=== PATIENT | male | born 1955 | race African-American/Black ===

== ENCOUNTER 2016-12-14 11:18 | Inpatient (IN) | payer OTHER ==
[2016-12-13 15:26] VITALS: BMI 25.7
[2016-12-14] VITALS (20 sets, daily range): BP systolic 110–148; BP diastolic 56–90; PULSE 64–80; RESP 8–20; Ht 188 cm; Wt 95.3 kg
[~2016-12-14] VITALS: Ht 188 cm; Wt 95.3 kg
[2016-12-14] MEDS: SOD CHLORIDE 0.9% 1,000 ML IV SCH ×2 (07:00→20:20)
[~2016-12-14 11:18] MED LIST: ACETAMINOPHEN 1000 MG/100 ML IVPB ONE; AMPICILLIN/SULB 3 GM/NS (PMX) 100 ML IVPB ONE; BUPIVACAINE 0.25% (MPF) 30 ML INJ ONE; metroNIDAZOLE 500 MG/NS (PMX) 100 ML IVPB ONE
[2016-12-14] MEDS ORDERED: ROCURONIUM 50 MG INJ ONE ×2 (12:53→15:04)
[2016-12-14] MEDS ORDERED: CEFAZOLIN 1 GM INJ ONE (12:53)
[2016-12-14] MEDS ORDERED: FENTAnyl 50 MCG/ML VIAL ONE (12:53)
[2016-12-14] MEDS ORDERED: MIDAZOLAM 1 MG/ML 2 ML INJ ONE (12:53)
[2016-12-14] MEDS ORDERED: LIDOCAINE 2% (SDV) 5 ML INJ ONE (12:53)
[2016-12-14] MEDS ORDERED: SUCCINYLCHOLINE CHLORIDE 100 MG/5 ML SYG IV ONE (12:53)
[2016-12-14] MEDS ORDERED: PROPOFOL 20 ML ONE (12:53)
[2016-12-14] MEDS ORDERED: BUPIVACAINE 0.25% (MPF) 30 ML INJ ONE (13:26)
[2016-12-14] MEDS ORDERED: ONDANSETRON 4 MG INJ ONE (14:13)
[2016-12-14] MEDS ORDERED: DEXAMETHASONE 4 MG/ML 1 ML INJ ONE (14:13)
[2016-12-14] MEDS ORDERED: HYDROmorphONE 2 MG/ML SYG ONE ×2 (14:22→15:32)
[2016-12-14] MEDS ORDERED: MEPERIDINE 25 MG INJ IV PRN (14:30)
[2016-12-14] MEDS ORDERED: ALBUTEROL 0.5% (NEB) 2.5 MG/0.5 ML AMP INH ONE (14:30)
[2016-12-14] MEDS ORDERED: PROCHLORPERAZINE 10 MG INJ IV PRN (14:30)
[2016-12-14] MEDS ORDERED: HYDROmorphONE (0.2 MG/ML) 10ML SYG IV PRN ×2 (14:30)
[2016-12-14] MEDS ORDERED: FENTAnyl 50 MCG/ML VIAL IV PRN (14:30)
[2016-12-14] MEDS ORDERED: IPRATROPIUM (NEB) 0.5 MG/2.5 ML AMP HHN ONE (14:30)
[2016-12-14] MEDS ORDERED: ONDANSETRON 4 MG INJ IV PRN (14:30)
[2016-12-14] MEDS ORDERED: DIPHENHYDRAMINE 50 MG INJ IV PRN (14:30)
[2016-12-14] MEDS ORDERED: AMPICILLIN/SULB 3 GM/NS (PMX) 100 ML IVPB STA (15:25)
[2016-12-14] MEDS ORDERED: NEOSTIGMINE 3 MG/3 ML SYRINGE ONE (15:37)
[2016-12-14] MEDS ORDERED: GLYCOPYRROLATE 0.4 MG INJ ONE (15:37)
[2016-12-14] MEDS: metroNIDAZOLE 500 MG/NS (PMX) 100 ML IVPB SCH ×2 (16:00→23:50)
[2016-12-14 16:48] LABS: BASOPHILS % 0.1 % (0.0-2.0); EOSINOPHILS # 0.1 10^3/ul (0.0-0.5); EOSINOPHILS % 0.5 % (0.0-7.0); HEMATOCRIT 45.4 % (42.0-52.0); HEMOGLOBIN 15.1 g/dl (14.0-18.0); LYMPHOCYTES # 1.4 10^3/ul (0.8-2.9); MEAN CORPUSCULAR HEMOGLOBIN 30.5 pg (29.0-33.0); MEAN CORPUSCULAR HGB CONC 33.3 g/dl (32.0-37.0); MEAN CORPUSCULAR VOLUME 91.6 fl (82.0-101.0); MEAN PLATELET VOLUME 7.4 fl (7.4-10.4); MONOCYTE # 0.1 10^3/ul (0.3-0.9); MONOCYTES % 0.8 % (0.0-11.0); NEUTROPHIL # 12.8 10^3/ul (1.6-7.5); NEUTROPHILS % 88.6 % (39.0-77.0); PLATELET COUNT 301 10^3/UL (140-440); RED BLOOD COUNT 4.96 10^6/ul (4.70-6.10); RED CELL DISTRIBUTION WIDTH 12.8 % (11.5-14.5); UNCORRECTED WBC 14.4 10^3/ul (4.8-10.8); WHITE BLOOD COUNT 14.4 10^3/ul (4.8-10.8)
--- NOTE | 2016-12-14 16:50 | OPR ---
DATE OF OPERATION: 12/14/2016 PREOPERATIVE DIAGNOSIS: Unresectable cecal polyp. POSTOPERATIVE DIAGNOSIS: Unresectable cecal polyp. OPERATION PERFORMED: Laparoscopic right hemicolectomy. INDICATIONS FOR PROCEDURE: This is a 61-year-old male with an unresectable cecal polyp. He request s surgical excision. Risks, alternatives, benefits and personnel were discussed with the patient. Patient expressed understanding and consents to the operation. SURGEON: Jameson Rodriges MD SPECIMEN: Right colon. COMPLICATIONS: None. ANESTHESIA: General. DESCRIPTION OF PROCEDURE: The patient was taken to the OR and prepped and draped in usual sterile fashion. Surgical timeout was performed. IV antibiotics were given. Midline incision is made arou nd the periumbilical region with insertion of the hand assist [place], suprapubic 12 mm optical troc ar left flank. The 12 mm optical trocars are placed under direct visualization. Upon initial inspe ction, the cecum was identified and the ileocolic artery was then identified after dissection with l aparoscopic Harmonic vijaya. This ileocolic artery was divided using a 45 mm vascular load [place] stapler. There was good hemostasis. The white line of [place]t was then divided along the right side of the colon ____proximally. There was good mobilization and medialization of the right colon to th e midline. At this point, the operation was converted to open portion of the operation. The cecum and right colon was identified and medialized. The right colon was divided with 2 fires of the 45 m m blue load [place]. Several loads of a white load 45 [place] was used to divide the mesentery. Di vision of approximately 4 inches from the ileocecal valve proximally was performed using a 45 mm dianne e load [place] stapler. The [id number] functional end-to-end anastomosis was performed by placing 2 enterotomies in the proximal and distal ends and approximation with 2 fires of blue load 45 [place] on stapler. There was good hemostasis. The enterotomy was then closed in a 2-layer fashion with a running 3-0 PDS and interrupted 3-0 silks. There was good hemostasis. The mesentery was then close d with a running 3-0 Vicryl. The midline incision was then closed with running #1 looped PDS from s uperior to inferior and inferior to superior and tied in the midline. The wound was irrigated with Betadine. Skin was closed with skin winston. Local anesthesia was injected into port sites and mid line incision. Dry dressings were applied. Dictated By: JAMESON YOU/DAVID Conf#: [id number] DID#: [id number]
[2016-12-14 16:52] LABS: CONDITION 1
[2016-12-14 16:52] LABS: ADD UMIC NO; URINE BILIRUBIN (Dip) NEGATIVE (NEGATIVE); URINE BLOOD (Dip) NEGATIVE (NEGATIVE); URINE COLOR LT. YELLOW (YELLOW); URINE GLUCOSE (Dip) NEGATIVE (NEGATIVE); URINE KETONES (Dip) NEGATIVE (NEGATIVE); URINE LEUKOCYTE ESTERASE (Dip) NEGATIVE (NEGATIVE); URINE NITRITE (Dip) NEGATIVE (NEGATIVE); URINE TOTAL PROTEIN (Dip) NEGATIVE (NEGATIVE); URINE UROBILINOGEN (Dip) 0.2 E.U./dL (0.1-1.0)
[2016-12-14 17:11] LABS: ALBUMIN 3.8 g/dl (3.3-4.9)
[2016-12-14 17:12] LABS: POTASSIUM 4.5 mmol/L (3.5-5.1)
[2016-12-14 17:14] LABS: ALBUMIN/GLOBULIN RATIO 1.08; BILIRUBIN,INDIRECT 0.5 mg/dl (0-1.1); BILIRUBIN,TOTAL 0.5 mg/dl (0.2-1.3); CREATININE 1.14 mg/dl (0.61-1.24); TOTAL PROTEIN 7.3 g/dl (6.1-8.1)
[2016-12-14 17:15] LABS: CALCIUM 9.1 mg/dl (8.4-10.2)
[2016-12-14] MEDS: HYDROmorphONE 1 MG/ML SYG IV PRN ×2 (17:46→23:50)
[2016-12-14] MEDS: LACTATED RINGER'S 1,000 ML IV SCH (17:47)
[2016-12-14] MEDS: AMPICILLIN/SULB 3 GM/NS (PMX) 100 ML IVPB SCH (21:25)
[2016-12-14] MEDS ORDERED: ALBUTEROL HFA 8 GM INHALER INH PRN (21:30)
[2016-12-15 00:03] VITALS: BP 142/80; RESP 20
[2016-12-15] MEDS: LACTATED RINGER'S 1,000 ML IV SCH ×3 (01:59→21:48)
[2016-12-15] MEDS: AMPICILLIN/SULB 3 GM/NS (PMX) 100 ML IVPB SCH ×3 (03:16→15:56)
[2016-12-15] MEDS: HEPARIN 5,000 UNIT/0.5 ML SYG SC SCH ×3 (05:16→21:53)
[2016-12-15 05:41] LABS: BASOPHIL # 0.1 10^3/ul (0.0-0.1); BASOPHILS % 0.5 % (0.0-2.0); HEMATOCRIT 43.9 % (42.0-52.0); HEMOGLOBIN 14.8 g/dl (14.0-18.0); LYMPHOCYTES # 1.2 10^3/ul (0.8-2.9); LYMPHOCYTES % 6.1 % (15.0-51.0); MEAN CORPUSCULAR HEMOGLOBIN 30.8 pg (29.0-33.0); MEAN CORPUSCULAR HGB CONC 33.7 g/dl (32.0-37.0); MEAN CORPUSCULAR VOLUME 91.3 fl (82.0-101.0); MEAN PLATELET VOLUME 7.8 fl (7.4-10.4); MONOCYTE # 0.6 10^3/ul (0.3-0.9); MONOCYTES % 3.2 % (0.0-11.0); NEUTROPHIL # 17.4 10^3/ul (1.6-7.5); NEUTROPHILS % 90.2 % (39.0-77.0); PLATELET COUNT 272 10^3/UL (140-440); RED BLOOD COUNT 4.81 10^6/ul (4.70-6.10); RED CELL DISTRIBUTION WIDTH 12.9 % (11.5-14.5); UNCORRECTED WBC 19.3 10^3/ul (4.8-10.8); WHITE BLOOD COUNT 19.3 10^3/ul (4.8-10.8)
[2016-12-15] MEDS: HYDROmorphONE 1 MG/ML SYG IV PRN ×3 (05:59→15:56)
[2016-12-15 06:10] LABS: ALBUMIN 3.7 g/dl (3.3-4.9); POTASSIUM 4.6 mmol/L (3.5-5.1)
[2016-12-15 06:11] LABS: CONDITION 1; LH ANALYZER COMMENTS 1; SUSPECT 1
[2016-12-15 06:12] LABS: BILIRUBIN,INDIRECT 0.6 mg/dl (0-1.1); BILIRUBIN,TOTAL 0.6 mg/dl (0.2-1.3); CREATININE 1.03 mg/dl (0.61-1.24)
[2016-12-15 06:13] LABS: ALBUMIN/GLOBULIN RATIO 1.08; CALCIUM 9.5 mg/dl (8.4-10.2); TOTAL PROTEIN 7.1 g/dl (6.1-8.1)
[2016-12-15 07:00] VITALS: BP 127/60; RESP 20
[2016-12-15] MEDS: SALMETEROL/FLUTICASONE 500/50 INHA INH SCH ×2 (08:24→20:37)
[2016-12-15] MEDS: metroNIDAZOLE 500 MG/NS (PMX) 100 ML IVPB SCH (08:24)
[2016-12-15] MEDS: SOD CHLORIDE 0.9% 1,000 ML IV SCH ×2 (09:40→23:00)
--- NOTE | 2016-12-15 11:26 | HP ---
Date/Time of Note Date/Time of Note DATE: 12/15/16 TIME: 11:25 Assessment/Plan VTE Prophylaxis VTE Prophylaxis Intervention: other Lines/Catheters IV [facility] Type (from [facility] Peripheral IV Urinary Cath still in place: Yes Reason Cath still needed: skin wounds contaminated by urine Assessment/Plan Chief Complaint/Hosp Course 1) cecal mass - s/p resection Problems: HPI/ROS Admit Date/Time Admit Date/Time Dec 14, 2016 at 11:18 Hx of Present Illness Patient comes in for elective surgery to remove a cecal mass. PMH/Family/Social Past Medical History Medical History: no pertinent history Past Surgical History Past Surgical Hx: no surgical history Social History Smoking Status: Unknown if ever smoked Exam/Review of Systems Vital Signs Vitals Vital Signs Date Time Temp Pulse Resp B/P Pulse Ox O2 Delivery O2 Flow Rate FiO2 12/15/16 07:00 98.7 70 20 127/60 97 12/14/16 21:30 Nasal Cannula 12/14/16 20:15 2.0 Intake and Output 12/14/16 12/14/16 12/15/16 15:00 23:00 07:00 Intake Total 2320 ml 1300 ml Output Total 1070 ml 1100 ml Balance 1250 ml 200 ml Exam Constitutional: well developed Head: atraumatic, normocephalic Respiratory: clear to auscultation Cardiovascular: regular rate and rhythm Extremities: normal pulses Labs Result Diagram: 12/15/16 0420 12/15/16 0420 Medications Medications Current Medications Sodium Chloride 1,000 ml @ 75 mls/hr [id number] IV ; Start 12/14/16 at 07:00 Ampicillin Sodium/ Sulbactam Sodium 100 ml @ 200 mls/hr Q6H IVPB Last administered on 12/15/16t 10:06; Admin Dose 200 MLS/HR; Start 12/14/16 at 22:00 ; Stop 12/15/16 at 21:59 Metronidazole (Flagyl 500 Mg (Pmx)) 100 ml @ 100 mls/hr Q8H IVPB Last administered on 12/15/16 08:24; Admin Dose 100 MLS/HR; Start 12/14/16 at 16:00 ; Stop 12/15/16 at 15:59 Hydromorphone HCl (Dilaudid) 0.5 mg Q6H PRN IV PAIN LEVEL 6-10 Last administered on 12/15/16 10:06; Admin Dose 0.5 MG; Start 12/14/16 at 16:00 Morphine Sulfate 2 mg 2 mg Q2H PRN IV PAIN LEVEL 6-10; Start 12/14/16 at 16:00 Lactated Ringer's (Lr) 1,000 ml @ 100 mls/hr Q10H IV Last administered on 12/14 17:47; Admin Dose 100 MLS/HR; Start 12/14/16 at 15:59 Heparin Sodium (Porcine) (Heparin (5000 Units/0.5 ml)) 5,000 unit Q8 SC Last administered on 12/15/16 05:16; Admin Dose 5,000 UNIT; Start 12/15/16 at 06:00 Salmeterol Xinafoate/ Fluticasone (Advair 500/50 Diskus) 1 inh BID INH Last administered on 12/15/16 08:24; Admin Dose 1 INH; Start 12/15/16 at 09:00 VALORIE LONGORIA Dec 15, 2016 11:26
--- NOTE | 2016-12-15 17:51 | PN ---
DATE: POSTOPERATIVE DAY: #1 SUBJECTIVE: Complains of feeling bloated, but is not passing gas, is not vomiting and no nausea. OBJECTIVE VITAL SIGNS: 98.7, heart rate 70, respirations 20, blood pressure 127/60, saturation 97% on room ai r. GENITOURINARY: Urine output 2,120 today. Del Rio catheter is in place. IV is running. EXTREMITIES: Sequential compression devices around the legs. LABORATORY: WBC 19,700, with 90% segmented. Hemoglobin 14.8, hematocrit 43.9. ASSESSMENT: Stable postoperative day #1. Abdomen is slightly distended. Bowel sounds are hypoacti ve. PLAN: Continue current care. Encourage out of bed walking around the floor. May discontinue Del Rio tomorrow morning. Dictated By: KARINA MARSHALL/DAVID Conf#: [id number] DID#: [id number]
[2016-12-15 19:34] VITALS: BP 112/66; RESP 20
[2016-12-15] MEDS: morphine 2 MG INJ IV PRN (20:37)
[2016-12-16] MEDS: morphine 2 MG INJ IV PRN ×3 (02:41→22:22)
[2016-12-16] MEDS: HEPARIN 5,000 UNIT/0.5 ML SYG SC SCH ×3 (05:53→20:30)
[2016-12-16 07:21] VITALS: BP 128/76; RESP 16
[2016-12-16] MEDS: LACTATED RINGER'S 1,000 ML IV SCH ×2 (07:59→16:54)
[2016-12-16] MEDS: SALMETEROL/FLUTICASONE 500/50 INHA INH SCH ×2 (08:19→20:28)
[2016-12-16] MEDS: SOD CHLORIDE 0.9% 1,000 ML IV SCH ×2 (08:19→22:26)
[2016-12-16] MEDS: HYDROmorphONE 1 MG/ML SYG IV PRN ×2 (11:45→17:58)
--- NOTE | 2016-12-16 12:13 | PN ---
Date/Time of Note Date/Time of Note DATE: 12/16/16 TIME: 12:12 Assessment/Plan VTE Prophylaxis VTE Prophylaxis Intervention: other Lines/Catheters IV [facility] Type (from [facility]): Peripheral IV Urinary Cath still in place: No Assessment/Plan Chief Complaint/Hosp Course 1) cecal mass - s/p resection Problems: Subjective 24 Hr Interval Summary Free Text/Dictation Patient has no complaints Exam/Review of Systems Vital Signs Vitals Vital Signs Date Time Temp Pulse Resp B/P Pulse Ox O2 Delivery O2 Flow Rate FiO2 12/16/16 07:21 98.7 84 16 128/76 98 12/14/16 21:30 Nasal Cannula 12/14/16 20:15 2.0 Intake and Output 12/15/16 12/15/16 12/16/16 15:00 23:00 07:00 Intake Total 900 ml 1200 ml Output Total 300 ml 1100 ml Balance 600 ml 100 ml Exam Constitutional: well developed Head: atraumatic, normocephalic Neck: supple Respiratory: clear to auscultation Cardiovascular: regular rate and rhythm Gastrointestinal: non-tender, soft Extremities: normal pulses Results Result Diagram: 12/15/16 0420 12/15/16 0420 Medications Medications Current Medications Sodium Chloride (NS) 1,000 ml @ 75 mls/hr [id number] IV Last administered on 12/16 08:19; Admin Dose 75 MLS/HR; Start 12/14/16 at 07:00 Hydromorphone HCl (Dilaudid) 0.5 mg Q6H PRN IV PAIN LEVEL 6-10 Last administered on 12/16/16 11:45; Admin Dose 0.5 MG; Start 12/14/16 at 16:00 Morphine Sulfate 2 mg 2 mg Q2H PRN IV PAIN LEVEL 6-10 Last administered on 12/16 08:19; Admin Dose 2 MG; Start 12/14/16 at 16:00 Lactated Ringer's (Lr) 1,000 ml @ 100 mls/hr Q10H IV Last administered on 12/15 21:48; Admin Dose 100 MLS/HR; Start 12/14/16 at 15:59 Heparin Sodium (Porcine) (Heparin (5000 Units/0.5 ml)) 5,000 unit Q8 SC Last administered on 1/22/17at 05:53; Admin Dose 5,000 UNIT; Start 12/15/16 at 06:00 Salmeterol Xinafoate/ Fluticasone (Advair 500/50 Diskus) 1 inh BID INH Last administered on 12/16/16t 08:19; Admin Dose 1 INH; Start 12/15/16 at 09:00 VALOIRE LONGORIA Dec 16, 2016 12:12
[2016-12-16] MEDS ORDERED: VITAMIN A & D 5 GM OINT PACKET TOP ONE (12:16)
[2016-12-16 19:25] VITALS: BP 128/79; RESP 18
--- NOTE | 2016-12-16 19:25 | PN ---
DATE: Postop day #2. SUBJECTIVE: No new complaints. He has not had any bowel movement or passing gas yet, has been out of bed, walking around. Del Rio has been discontinued and is urinating. OBJECTIVE: VITAL SIGNS: As follows, temperature 98.7, pulse 84, respirations 16, blood pressure 128/76, 98% sat uration on room air. WBC was not done today, going to do it tomorrow. ABDOMEN: Soft, some tenderness on deep pressure in the lower quadrants. ASSESSMENT: Stable post right hemicolectomy. PLAN: Continue current care and keep the patient n.p.o., encourage out of bed, walking around and e ncouraged to use incentive spirometry. Will repeat CBC and BMP tomorrow morning. Dictated By: KARINA CAMPA MD PS/NTS Conf#: [id number] DID#: [id number]
--- NOTE | 2016-12-16 20:00 | PN ---
DATE: SUBJECTIVE: Does not have any specific complaint. No bowel movement, no passing gas. No nausea, n o vomiting. OBJECTIVE: VITAL SIGNS: As follows, 98.7, 84, 16, 128/76, 98% room air. No BM today. WBC not done. ABDOMEN: Soft. Tenderness in both lower quadrants on deep pressure. EXTREMITIES: No pitting edema lower extremities. Del Rio is out. Sequential compression device in p lace. Patient is using his incentive spirometry. ASSESSMENT AND PLAN: Stable postoperative day #2. Awaiting passage of gas from the rectum. PLAN: Continue current care, IV hydration and sequential compression device and incentive spirometr y and out of bed and walk around. Dictated By: KARINA CAMPA MD PS/NTS Conf#: [id number] DID#: [id number]
[2016-12-17] MEDS: LACTATED RINGER'S 1,000 ML IV SCH ×3 (03:59→20:49)
[2016-12-17 05:47] LABS: POTASSIUM 3.9 mmol/L (3.5-5.1)
[2016-12-17 05:48] LABS: BASOPHILS % 0.1 % (0.0-2.0); EOSINOPHILS # 0.3 10^3/ul (0.0-0.5); EOSINOPHILS % 3.6 % (0.0-7.0); HEMOGLOBIN 13.4 g/dl (14.0-18.0); LYMPHOCYTES % 10.3 % (15.0-51.0); MEAN CORPUSCULAR HEMOGLOBIN 31.1 pg (29.0-33.0); MEAN CORPUSCULAR HGB CONC 34.5 g/dl (32.0-37.0); MEAN CORPUSCULAR VOLUME 90.1 fl (82.0-101.0); MEAN PLATELET VOLUME 8.1 fl (7.4-10.4); MONOCYTE # 0.1 10^3/ul (0.3-0.9); MONOCYTES % 1.2 % (0.0-11.0); NEUTROPHIL # 8.1 10^3/ul (1.6-7.5); NEUTROPHILS % 84.8 % (39.0-77.0); PLATELET COUNT 253 10^3/UL (140-440); RED BLOOD COUNT 4.33 10^6/ul (4.70-6.10); RED CELL DISTRIBUTION WIDTH 12.6 % (11.5-14.5); UNCORRECTED WBC 9.6 10^3/ul (4.8-10.8); WHITE BLOOD COUNT 9.6 10^3/ul (4.8-10.8)
[2016-12-17 05:49] LABS: CREATININE 1.08 mg/dl (0.61-1.24)
[2016-12-17 05:50] LABS: CALCIUM 9.1 mg/dl (8.4-10.2)
[2016-12-17] MEDS: HYDROmorphONE 1 MG/ML SYG IV PRN ×3 (06:05→20:57)
[2016-12-17] MEDS: HEPARIN 5,000 UNIT/0.5 ML SYG SC SCH ×3 (06:05→21:42)
[2016-12-17 06:16] LABS: CONDITION 1
[2016-12-17 07:57] VITALS: BP 124/77; RESP 18
--- NOTE | 2016-12-17 08:54 | PN ---
Date/Time of Note Date/Time of Note DATE: 12/17/16 TIME: 08:53 Assessment/Plan VTE Prophylaxis VTE Prophylaxis Intervention: heparin, SCD's Lines/Catheters IV Catheter Type (from Nrs): Peripheral IV Urinary Cath still in place: No Assessment/Plan Chief Complaint/Hosp Course s/p lap right hemicolectomy Problems: Assessment/Plan start clear liquids Subjective 24 Hr Interval Summary Free Text/Dictation doing well, passed flatus, no nausea, no vomiting Exam/Review of Systems Vital Signs Vitals Vital Signs Date Time Temp Pulse Resp B/P Pulse Ox O2 Delivery O2 Flow Rate FiO2 12/17/16 07:57 98.2 75 18 124/77 95 12/14/16 21:30 Nasal Cannula 12/14/16 20:15 2.0 Intake and Output 12/16/16 12/16/16 12/17/16 15:00 23:00 07:00 Intake Total 800 ml 700 ml Output Total 600 ml 380 ml Balance 200 ml 320 ml Exam clean dry intact incision Results Result Diagram: 12/17/16 0445 12/17/16 0445 Results 24 hrs Laboratory Tests Test 12/17/16 04:45 Anion Gap 17 H Basophils # 0.0 Basophils % 0.1 Blood Urea Nitrogen 12 Calcium Level 9.1 Carbon Dioxide Level 27 Chloride Level 98 Creatinine 1.08 Eosinophils # 0.3 Eosinophils % 3.6 Glucose Level 83 Hematocrit 39.0 L Hemoglobin 13.4 L Lymphocytes # 1.0 Lymphocytes % 10.3 L Mean Corpuscular Hemoglobin 31.1 Mean Corpuscular Hemoglobin Concent 34.5 Mean Corpuscular Volume 90.1 Mean Platelet Volume 8.1 Monocytes # 0.1 L Monocytes % 1.2 Neutrophils # 8.1 H Neutrophils % 84.8 H Nucleated Red Blood Cells # 0.0 Nucleated Red Blood Cells % 0.0 Platelet Count 253 Potassium Level 3.9 Red Blood Count 4.33 L Red Cell Distribution Width 12.6 Sodium Level 138 White Blood Count 9.6 # Medications Medications Current Medications Sodium Chloride (NS) 1,000 ml @ 75 mls/hr [id number] IV Last administered on 12/16t 22:26; Admin Dose 75 MLS/HR; Start 12/14/16 at 07:00 Hydromorphone HCl (Dilaudid) 0.5 mg Q6H PRN IV PAIN LEVEL 6-10 Last administered on 12/17/16 06:05; Admin Dose 0.5 MG; Start 12/14/16 at 16:00 Morphine Sulfate 2 mg 2 mg Q2H PRN IV PAIN LEVEL 6-10 Last administered on 12/16 22:22; Admin Dose 2 MG; Start 12/14/16 at 16:00 Lactated Ringer's (Lr) 1,000 ml @ 100 mls/hr Q10H IV Last administered on 12/15 21:48; Admin Dose 100 MLS/HR; Start 12/14/16 at 15:59 Heparin Sodium (Porcine) (Heparin (5000 Units/0.5 ml)) 5,000 unit Q8 SC Last administered on 12/17/16 06:05; Admin Dose 5,000 UNIT; Start 12/15/16 at 06:00 Salmeterol Xinafoate/ Fluticasone (Advair 500/50 Diskus) 1 inh BID INH Last administered on 12/16/16 20:28; Admin Dose 1 INH; Start 12/15/16 at 09:00 Chris TORRES Dec 17, 2016 08:54
[2016-12-17] MEDS: SALMETEROL/FLUTICASONE 500/50 INHA INH SCH ×2 (09:20→20:47)
[2016-12-17] MEDS: CALCIUM CARBONATE 500 MG CHEW TAB PO SCH ×2 (12:34→20:48)
[2016-12-17] MEDS: SOD CHLORIDE 0.9% 1,000 ML IV SCH (13:41)
--- NOTE | 2016-12-17 17:49 | PN ---
Date/Time of Note Date/Time of Note DATE: 12/17/16 TIME: 17:39 Assessment/Plan VTE Prophylaxis VTE Prophylaxis Intervention: heparin Lines/Catheters IV [facility] Type (from [facility]): Peripheral IV Urinary Cath still in place: No Assessment/Plan Chief Complaint/Hosp Course Assessment and plan Unresectable cecal polyp, s/p laparoscopic right hemicolectomy by Dr. Rodriges. Advance diet per surgery, incentive spirometer every hour patient is awake. Hiccups, started on Reglan. Problems: Subjective 24 Hr Interval Summary Free Text/Dictation Patient's complaints of hiccups, tolerates clear liquid diet well, denies nausea vomiting, pain is well controlled. Exam/Review of Systems Vital Signs Vitals Vital Signs Date Time Temp Pulse Resp B/P Pulse Ox O2 Delivery O2 Flow Rate FiO2 12/17/16 07:57 98.2 75 18 124/77 95 12/14/16 21:30 Nasal Cannula 12/14/16 20:15 2.0 Intake and Output 12/16/16 12/16/16 12/17/16 15:00 23:00 07:00 Intake Total 800 ml 700 ml Output Total 600 ml 380 ml Balance 200 ml 320 ml Exam Constitutional: alert Psych: no complaints Head: atraumatic, normocephalic Eyes: nl conjunctiva Neck: non-tender, supple Respiratory: clear to auscultation Cardiovascular: regular rate and rhythm Gastrointestinal: bowel sounds, other (surgical incision intact), soft Musculoskeletal: nl extremities to inspection Extremities: normal pulses Neurological: HAND IRONER II-XII intact Skin: nl turgor Results Result Diagram: 12/17/165 12/17/16 0445 Results 24 hrs Laboratory Tests Test 12/17/16 04:45 Anion Gap 17 H Basophils # 0.0 Basophils % 0.1 Blood Urea Nitrogen 12 Calcium Level 9.1 Carbon Dioxide Level 27 Chloride Level 98 Creatinine 1.08 Eosinophils # 0.3 Eosinophils % 3.6 Glucose Level 83 Hematocrit 39.0 L Hemoglobin 13.4 L Lymphocytes # 1.0 Lymphocytes % 10.3 L Mean Corpuscular Hemoglobin 31.1 Mean Corpuscular Hemoglobin Concent 34.5 Mean Corpuscular Volume 90.1 Mean Platelet Volume 8.1 Monocytes # 0.1 L Monocytes % 1.2 Neutrophils # 8.1 H Neutrophils % 84.8 H Nucleated Red Blood Cells # 0.0 Nucleated Red Blood Cells % 0.0 Platelet Count 253 Potassium Level 3.9 Red Blood Count 4.33 L Red Cell Distribution Width 12.6 Sodium Level 138 White Blood Count 9.6 # Medications Medications Current Medications Sodium Chloride (NS) 1,000 ml @ 75 mls/hr [id number] IV Last administered on 12/17 13:41; Admin Dose 75 MLS/HR; Start 12/14/16 at 07:00 Hydromorphone HCl (Dilaudid) 0.5 mg Q6H PRN IV PAIN LEVEL 6-10 Last administered on 12/17/16 11:55; Admin Dose 0.5 MG; Start 12/14/16 at 16:00 Morphine Sulfate 2 mg 2 mg Q2H PRN IV PAIN LEVEL 6-10 Last administered on 12/16 22:22; Admin Dose 2 MG; Start 12/14/16 at 16:00 Lactated Ringer's (Lr) 1,000 ml @ 100 mls/hr Q10H IV Last administered on 12/15 21:48; Admin Dose 100 MLS/HR; Start 12/14/16 at 15:59 Heparin Sodium (Porcine) (Heparin (5000 Units/0.5 ml)) 5,000 unit Q8 SC Last administered on 12/17/16 14:11; Admin Dose 5,000 UNIT; Start 12/15/16 at 06:00 Salmeterol Xinafoate/ Fluticasone (Advair 500/50 Diskus) 1 inh BID INH Last administered on 12/17/16 09:20; Admin Dose 1 INH; Start 12/15/16 at 09:00 Calcium Carbonate (Tums) 500 mg TID PO Last administered on 12/17/16 12:34; Admin Dose 500 MG; Start 12/17/16 at 12:00 MULU MARCELO Dec 17, 2016 17:49
[2016-12-17] MEDS: METOCLOPRAMIDE 10 MG TAB PO SCH ×2 (17:54→23:29)
[2016-12-17 19:05] VITALS: BP 127/94; RESP 20
[2016-12-18] MEDS: CYCLOBENZAPRINE 10 MG TAB PO SCH ×5 (03:37→20:51)
[2016-12-18] MEDS: SOD CHLORIDE 0.9% 1,000 ML IV SCH ×2 (03:38→17:14)
[2016-12-18 06:00] LABS: BASOPHIL # 0.1 10^3/ul (0.0-0.1); BASOPHILS % 0.7 % (0.0-2.0); EOSINOPHILS # 0.1 10^3/ul (0.0-0.5); EOSINOPHILS % 0.6 % (0.0-7.0); HEMATOCRIT 45.6 % (42.0-52.0); HEMOGLOBIN 15.9 g/dl (14.0-18.0); LYMPHOCYTES % 8.4 % (15.0-51.0); MEAN CORPUSCULAR HEMOGLOBIN 31.3 pg (29.0-33.0); MEAN CORPUSCULAR HGB CONC 34.8 g/dl (32.0-37.0); MEAN CORPUSCULAR VOLUME 90.1 fl (82.0-101.0); MEAN PLATELET VOLUME 8.5 fl (7.4-10.4); MONOCYTE # 0.5 10^3/ul (0.3-0.9); MONOCYTES % 4.6 % (0.0-11.0); NEUTROPHIL # 9.8 10^3/ul (1.6-7.5); NEUTROPHILS % 85.7 % (39.0-77.0); PLATELET COUNT 326 10^3/UL (140-440); RED BLOOD COUNT 5.06 10^6/ul (4.70-6.10); RED CELL DISTRIBUTION WIDTH 12.7 % (11.5-14.5); UNCORRECTED WBC 11.4 10^3/ul (4.8-10.8); WHITE BLOOD COUNT 11.4 10^3/ul (4.8-10.8)
[2016-12-18 06:06] LABS: CONDITION 1
[2016-12-18 06:08] LABS: POTASSIUM 4.1 mmol/L (3.5-5.1)
[2016-12-18 06:11] LABS: CALCIUM 9.6 mg/dl (8.4-10.2); CREATININE 0.89 mg/dl (0.61-1.24)
[2016-12-18] MEDS: METOCLOPRAMIDE 10 MG TAB PO SCH ×2 (06:16→11:15)
[2016-12-18] MEDS: HEPARIN 5,000 UNIT/0.5 ML SYG SC SCH ×3 (06:19→20:41)
[2016-12-18 07:42] VITALS: BP 138/88; RESP 20
[2016-12-18] MEDS ORDERED: CYCLOBENZAPRINE 10 MG TAB PO SCH (09:00)
[2016-12-18] MEDS: CALCIUM CARBONATE 500 MG CHEW TAB PO SCH ×4 (09:07→20:51)
[2016-12-18] MEDS: SALMETEROL/FLUTICASONE 500/50 INHA INH SCH ×2 (09:08→20:38)
[2016-12-18] MEDS: LACTATED RINGER'S 1,000 ML IV SCH ×3 (09:13→21:13)
[2016-12-18] MEDS ORDERED: ACETAMINOPHEN 325 MG TAB PO PRN (11:00)
[2016-12-18] MEDS ORDERED: hydrALAzine 20 MG INJ IV PRN (12:00)
[2016-12-18] MEDS ORDERED: ONDANSETRON 4 MG INJ IV PRN (12:00)
[2016-12-18] MEDS: METOCLOPRAMIDE 10 MG INJ IV SCH ×2 (17:18→23:39)
--- NOTE | 2016-12-18 17:24 | PN ---
Date/Time of Note Date/Time of Note DATE: 12/18/16 TIME: 17:23 Assessment/Plan VTE Prophylaxis VTE Prophylaxis Intervention: heparin, SCD's Lines/Catheters IV Catheter Type (from Nrs): Peripheral IV Urinary Cath still in place: No Assessment/Plan Chief Complaint/Hosp Course s/p lap right hemicolectomy Problems: Assessment/Plan some ileus, await bowel function, keep npo Subjective 24 Hr Interval Summary Free Text/Dictation some ileus symptoms, no vomiting Exam/Review of Systems Vital Signs Vitals Vital Signs Date Time Temp Pulse Resp B/P Pulse Ox O2 Delivery O2 Flow Rate FiO2 12/18/16 07:42 98.0 92 20 138/88 95 12/14/16 21:30 Nasal Cannula 12/14/16 20:15 2.0 Intake and Output 12/17/16 12/17/16 12/18/16 15:00 23:00 07:00 Intake Total 1465 ml 1660 ml Output Total 650 ml Balance 815 ml 1660 ml Exam abdomen mildly distended Results Result Diagram: 12/18/16 0447 12/18/16 0447 Results 24 hrs Laboratory Tests Test 12/18/16 04:47 Anion Gap 18 H Basophils # 0.1 Basophils % 0.7 Blood Urea Nitrogen 18 Calcium Level 9.6 Carbon Dioxide Level 25 Chloride Level 97 Creatinine 0.89 Eosinophils # 0.1 Eosinophils % 0.6 Glucose Level 123 # Hematocrit 45.6 Hemoglobin 15.9 Lymphocytes # 1.0 Lymphocytes % 8.4 L Mean Corpuscular Hemoglobin 31.3 Mean Corpuscular Hemoglobin Concent 34.8 Mean Corpuscular Volume 90.1 Mean Platelet Volume 8.5 Monocytes # 0.5 Monocytes % 4.6 Neutrophils # 9.8 H Neutrophils % 85.7 H Nucleated Red Blood Cells # 0.0 Nucleated Red Blood Cells % 0.0 Platelet Count 326 # Potassium Level 4.1 Red Blood Count 5.06 Red Cell Distribution Width 12.7 Sodium Level 136 White Blood Count 11.4 H Medications Medications Current Medications Sodium Chloride (NS) 1,000 ml @ 75 mls/hr [id number] IV Last administered on 12/17t 13:41; Admin Dose 75 MLS/HR; Start 12/14/16 at 07:00 Hydromorphone HCl (Dilaudid) 0.5 mg Q6H PRN IV PAIN LEVEL 6-10 Last administered on 12/17/16 20:57; Admin Dose 0.5 MG; Start 12/14/16 at 16:00 Morphine Sulfate 2 mg 2 mg Q2H PRN IV PAIN LEVEL 6-10 Last administered on 12/16 22:22; Admin Dose 2 MG; Start 12/14/16 at 16:00 Lactated Ringer's (Lr) 1,000 ml @ 100 mls/hr Q10H IV Last administered on 12/18 09:13; Admin Dose 100 MLS/HR; Start 12/14/16 at 15:59 Heparin Sodium (Porcine) (Heparin (5000 Units/0.5 ml)) 5,000 unit Q8 SC Last administered on 12/18/16 14:52; Admin Dose 5,000 UNIT; Start 12/15/16 at 06:00 Salmeterol Xinafoate/ Fluticasone (Advair 500/50 Diskus) 1 inh BID INH Last administered on 12/18/16 09:08; Admin Dose 1 INH; Start 12/15/16 at 09:00 Calcium Carbonate (Tums) 500 mg TID PO Last administered on 12/18/16 09:07; Admin Dose 500 MG; Start 12/17/16 at 12:00 Cyclobenzaprine HCl (Flexeril) 10 mg TID PO Last administered on 12/18/16 09: 07; Admin Dose 10 MG; Start 12/18/16 at 03:00 Acetaminophen (Tylenol Tab) 650 mg Q4H PRN PO PAIN AND OR ELEVATED TEMP Last administered on 12/18/16 10:57; Admin Dose 650 MG; Start 12/18/16 at 11:00 Metoclopramide HCl (Reglan) 5 mg Q6H IV Last administered on 12/18/16 17:18; Admin Dose 5 MG; Start 12/18/16 at 18:00 Ondansetron HCl (Zofran Inj) 4 mg Q6H PRN IV NAUSEA AND/OR VOMITING; Start at 12:00 Hydralazine HCl (Apresoline) 10 mg Q4H PRN IV ELEVATED BLOOD PRESSURE; Start at 12:00 Chris TORRES Dec 18, 2016 17:24
--- NOTE | 2016-12-18 19:14 | PN ---
Date/Time of Note Date/Time of Note DATE: 12/18/16 TIME: 19:11 Assessment/Plan VTE Prophylaxis VTE Prophylaxis Intervention: heparin Lines/Catheters IV [facility] Type (from [facility]): Peripheral IV Urinary Cath still in place: No Assessment/Plan Chief Complaint/Hosp Course Assessment and plan - Unresectable cecal polyp, s/p laparoscopic right hemicolectomy by Dr. Rodriges. incentive spirometer every hour patient is awake. -Postop ileus. Patient is n.p.o. - Hiccups, continue Reglan. Continue heparin for deep venous thrombosis prophylaxis. Further recommendations based on clinical course. Plan of care discussed with Dr. Aly. Problems: Subjective 24 Hr Interval Summary Free Text/Dictation Patient is currently n.p.o., stated decrease in hiccups, no fever. Exam/Review of Systems Vital Signs Vitals Vital Signs Date Time Temp Pulse Resp B/P Pulse Ox O2 Delivery O2 Flow Rate FiO2 12/18/16 07:42 98.0 92 20 138/88 95 12/14/16 21:30 Nasal Cannula 12/14/16 20:15 2.0 Intake and Output 12/17/16 12/17/16 12/18/16 15:00 23:00 07:00 Intake Total 1465 ml 1660 ml Output Total 650 ml Balance 815 ml 1660 ml Exam Constitutional: alert Psych: no complaints Head: atraumatic, normocephalic Eyes: nl conjunctiva Neck: non-tender, supple Respiratory: clear to auscultation Cardiovascular: regular rate and rhythm Gastrointestinal: bowel sounds, other (surgical incision intact), soft Musculoskeletal: nl extremities to inspection Extremities: normal pulses Neurological: PEDIATRIC CNS II-XII intact Skin: nl turgor Results Result Diagram: 12/18/1644612/18/16446 Results 24 hrs Laboratory Tests Test 12/18/16 04:47 Anion Gap 18 H Basophils # 0.1 Basophils % 0.7 Blood Urea Nitrogen 18 Calcium Level 9.6 Carbon Dioxide Level 25 Chloride Level 97 Creatinine 0.89 Eosinophils # 0.1 Eosinophils % 0.6 Glucose Level 123 # Hematocrit 45.6 Hemoglobin 15.9 Lymphocytes # 1.0 Lymphocytes % 8.4 L Mean Corpuscular Hemoglobin 31.3 Mean Corpuscular Hemoglobin Concent 34.8 Mean Corpuscular Volume 90.1 Mean Platelet Volume 8.5 Monocytes # 0.5 Monocytes % 4.6 Neutrophils # 9.8 H Neutrophils % 85.7 H Nucleated Red Blood Cells # 0.0 Nucleated Red Blood Cells % 0.0 Platelet Count 326 # Potassium Level 4.1 Red Blood Count 5.06 Red Cell Distribution Width 12.7 Sodium Level 136 White Blood Count 11.4 H Medications Medications Current Medications Sodium Chloride (NS) 1,000 ml @ 75 mls/hr [id number] IV Last administered on 12/17 13:41; Admin Dose 75 MLS/HR; Start 12/14/16 at 07:00 Hydromorphone HCl (Dilaudid) 0.5 mg Q6H PRN IV PAIN LEVEL 6-10 Last administered on 12/17/16 20:57; Admin Dose 0.5 MG; Start 12/14/16 at 16:00 Morphine Sulfate 2 mg 2 mg Q2H PRN IV PAIN LEVEL 6-10 Last administered on 12/16 22:22; Admin Dose 2 MG; Start 12/14/16 at 16:00 Lactated Ringer's (Lr) 1,000 ml @ 100 mls/hr Q10H IV Last administered on 12/18 09:13; Admin Dose 100 MLS/HR; Start 12/14/16 at 15:59 Heparin Sodium (Porcine) (Heparin (5000 Units/0.5 ml)) 5,000 unit Q8 SC Last administered on 12/18/16 14:52; Admin Dose 5,000 UNIT; Start 12/15/16 at 06:00 Salmeterol Xinafoate/ Fluticasone (Advair 500/50 Diskus) 1 inh BID INH Last administered on 12/18/16 09:08; Admin Dose 1 INH; Start 12/15/16 at 09:00 Calcium Carbonate (Tums) 500 mg TID PO Last administered on 12/18/16 09:07; Admin Dose 500 MG; Start 12/17/16 at 12:00 Cyclobenzaprine HCl (Flexeril) 10 mg TID PO Last administered on 12/18/16 09: 07; Admin Dose 10 MG; Start 12/18/16 at 03:00 Acetaminophen (Tylenol Tab) 650 mg Q4H PRN PO PAIN AND OR ELEVATED TEMP Last administered on 1/24/17at 10:57; Admin Dose 650 MG; Start 12/18/16 at 11:00 Metoclopramide HCl (Reglan) 5 mg Q6H IV Last administered on 12/18/16t 17:18; Admin Dose 5 MG; Start 12/18/16 at 18:00 Ondansetron HCl (Zofran Inj) 4 mg Q6H PRN IV NAUSEA AND/OR VOMITING; Start at 12:00 Hydralazine HCl (Apresoline) 10 mg Q4H PRN IV ELEVATED BLOOD PRESSURE; Start at 12:00 MULU MARCELO Dec 18, 2016 19:14
[2016-12-18 20:19] VITALS: BP 127/88; RESP 20
[2016-12-19] MEDS: METOCLOPRAMIDE 10 MG INJ IV SCH ×4 (05:26→23:27)
[2016-12-19 05:30] LABS: BASOPHILS % 0.4 % (0.0-2.0); EOSINOPHILS # 0.6 10^3/ul (0.0-0.5); EOSINOPHILS % 6.1 % (0.0-7.0); HEMATOCRIT 40.1 % (42.0-52.0); HEMOGLOBIN 13.9 g/dl (14.0-18.0); LYMPHOCYTES # 1.5 10^3/ul (0.8-2.9); LYMPHOCYTES % 16.1 % (15.0-51.0); MEAN CORPUSCULAR HEMOGLOBIN 31.2 pg (29.0-33.0); MEAN CORPUSCULAR HGB CONC 34.7 g/dl (32.0-37.0); MEAN CORPUSCULAR VOLUME 90.1 fl (82.0-101.0); MEAN PLATELET VOLUME 7.9 fl (7.4-10.4); MONOCYTE # 0.5 10^3/ul (0.3-0.9); MONOCYTES % 5.2 % (0.0-11.0); NEUTROPHIL # 6.8 10^3/ul (1.6-7.5); NEUTROPHILS % 72.2 % (39.0-77.0); PLATELET COUNT 323 10^3/UL (140-440); RED BLOOD COUNT 4.45 10^6/ul (4.70-6.10); RED CELL DISTRIBUTION WIDTH 12.5 % (11.5-14.5); UNCORRECTED WBC 9.4 10^3/ul (4.8-10.8); WHITE BLOOD COUNT 9.4 10^3/ul (4.8-10.8)
[2016-12-19] MEDS: HEPARIN 5,000 UNIT/0.5 ML SYG SC SCH ×3 (05:32→22:13)
[2016-12-19 05:49] LABS: CONDITION 1; POTASSIUM 3.6 mmol/L (3.5-5.1)
[2016-12-19 05:52] LABS: CREATININE 1.06 mg/dl (0.61-1.24)
[2016-12-19 05:53] LABS: CALCIUM 9.2 mg/dl (8.4-10.2)
[2016-12-19] MEDS: SOD CHLORIDE 0.9% 1,000 ML IV SCH ×2 (06:15→20:20)
[2016-12-19 07:54] VITALS: BP 117/73; RESP 16
[2016-12-19] MEDS: CYCLOBENZAPRINE 10 MG TAB PO SCH ×5 (09:00→23:32)
[2016-12-19] MEDS: CALCIUM CARBONATE 500 MG CHEW TAB PO SCH ×3 (09:00→20:24)
[2016-12-19] MEDS: SALMETEROL/FLUTICASONE 500/50 INHA INH SCH ×2 (09:11→20:24)
[2016-12-19] MEDS: LACTATED RINGER'S 1,000 ML IV SCH (09:14)
--- NOTE | 2016-12-19 13:37 | PN ---
Date/Time of Note Date/Time of Note DATE: 12/19/16 TIME: 13:36 Assessment/Plan VTE Prophylaxis VTE Prophylaxis Intervention: heparin, SCD's Lines/Catheters IV Catheter Type (from Nrs): Peripheral IV Urinary Cath still in place: No Assessment/Plan Chief Complaint/Hosp Course s/p lap right hemicolectomy Problems: Assessment/Plan having normal bowel movements start regular diet Subjective 24 Hr Interval Summary Free Text/Dictation no major issues, having bm Exam/Review of Systems Vital Signs Vitals Vital Signs Date Time Temp Pulse Resp B/P Pulse Ox O2 Delivery O2 Flow Rate FiO2 12/19/16 07:54 98.4 79 16 117/73 95 Intake and Output 12/18/16 12/18/16 12/19/16 15:00 23:00 07:00 Intake Total 200 ml 1240 ml 600 ml Balance 200 ml 1240 ml 600 ml Exam c/d/i Results Result Diagram: 12/19/16 0420 12/19/16 0420 Results 24 hrs Laboratory Tests Test 12/19/16 04:20 Anion Gap 14 Basophils # 0.0 Basophils % 0.4 Blood Urea Nitrogen 13 Calcium Level 9.2 Carbon Dioxide Level 28 Chloride Level 100 Creatinine 1.06 Eosinophils # 0.6 H Eosinophils % 6.1 Glucose Level 86 Hematocrit 40.1 L Hemoglobin 13.9 L Lymphocytes # 1.5 Lymphocytes % 16.1 Mean Corpuscular Hemoglobin 31.2 Mean Corpuscular Hemoglobin Concent 34.7 Mean Corpuscular Volume 90.1 Mean Platelet Volume 7.9 Monocytes # 0.5 Monocytes % 5.2 Neutrophils # 6.8 Neutrophils % 72.2 Nucleated Red Blood Cells # 0.0 Nucleated Red Blood Cells % 0.0 Platelet Count 323 Potassium Level 3.6 Red Blood Count 4.45 L Red Cell Distribution Width 12.5 Sodium Level 138 White Blood Count 9.4 Medications Medications Current Medications Sodium Chloride (NS) 1,000 ml @ 75 mls/hr [id number] IV Last administered on 12/17 13:41; Admin Dose 75 MLS/HR; Start 12/14/16 at 07:00 Hydromorphone HCl (Dilaudid) 0.5 mg Q6H PRN IV PAIN LEVEL 6-10 Last administered on 12/17/16 20:57; Admin Dose 0.5 MG; Start 12/14/16 at 16:00 Morphine Sulfate 2 mg 2 mg Q2H PRN IV PAIN LEVEL 6-10 Last administered on 12/16 22:22; Admin Dose 2 MG; Start 12/14/16 at 16:00 Lactated Ringer's (Lr) 1,000 ml @ 100 mls/hr Q10H IV Last administered on 12/19 09:14; Admin Dose 100 MLS/HR; Start 12/14/16 at 15:59 Heparin Sodium (Porcine) (Heparin (5000 Units/0.5 ml)) 5,000 unit Q8 SC Last administered on 12/19/16 05:32; Admin Dose 5,000 UNIT; Start 12/15/16 at 06:00 Salmeterol Xinafoate/ Fluticasone (Advair 500/50 Diskus) 1 inh BID INH Last administered on 12/19/16 09:11; Admin Dose 1 INH; Start 12/15/16 at 09:00 Calcium Carbonate (Tums) 500 mg TID PO Last administered on 12/18/16 09:07; Admin Dose 500 MG; Start 12/17/16 at 12:00 Cyclobenzaprine HCl (Flexeril) 10 mg TID PO Last administered on 12/18/16 09: 07; Admin Dose 10 MG; Start 12/18/16 at 03:00 Acetaminophen (Tylenol Tab) 650 mg Q4H PRN PO PAIN AND OR ELEVATED TEMP Last administered on 12/18/16 10:57; Admin Dose 650 MG; Start 12/18/16 at 11:00 Metoclopramide HCl (Reglan) 5 mg Q6H IV Last administered on 12/19/16 12:52; Admin Dose 5 MG; Start 12/18/16 at 18:00 Ondansetron HCl (Zofran Inj) 4 mg Q6H PRN IV NAUSEA AND/OR VOMITING; Start at 12:00 Hydralazine HCl (Apresoline) 10 mg Q4H PRN IV ELEVATED BLOOD PRESSURE; Start at 12:00 Chris TORRES Dec 19, 2016 13:37
[2016-12-19 19:00] VITALS: BP 123/71; RESP 18
--- NOTE | 2016-12-19 19:18 | PN ---
Date/Time of Note Date/Time of Note DATE: 12/19/16 TIME: 19:16 Assessment/Plan VTE Prophylaxis VTE Prophylaxis Intervention: SCD's Lines/Catheters IV C[facility]ter Type (from [facility] Peripheral IV Urinary Cath still in place: No Assessment/Plan Chief Complaint/Hosp Course Assessment and plan - Unresectable cecal polyp, s/p laparoscopic right hemicolectomy by Dr. Rodriges. incentive spirometer every hour patient is awake. -Postop ileus, resolving - Hiccups, improved,continue Reglan. Continue heparin for deep venous thrombosis prophylaxis. Further recommendations based on clinical course. Plan of care discussed with Dr. Aly. Problems: Subjective 24 Hr Interval Summary Free Text/Dictation Patient had bowel movement, started on regular diet, pain is well controlled. Exam/Review of Systems Vital Signs Vitals Vital Signs Date Time Temp Pulse Resp B/P Pulse Ox O2 Delivery O2 Flow Rate FiO2 12/19/16 07:54 98.4 79 16 117/73 95 Intake and Output 12/18/16 12/18/16 12/19/16 15:00 23:00 07:00 Intake Total 200 ml 1240 ml 600 ml Balance 200 ml 1240 ml 600 ml Exam Constitutional: alert Psych: no complaints Head: atraumatic, normocephalic Eyes: nl conjunctiva Neck: non-tender, supple Respiratory: clear to auscultation Cardiovascular: regular rate and rhythm Gastrointestinal: bowel sounds, other (surgical incision intact), soft Musculoskeletal: nl extremities to inspection Extremities: normal pulses Neurological: METAL CUTTER II-XII intact Skin: nl turgor Results Result Diagram: 12/19/16 0420 12/19/16 0420 Results 24 hrs Laboratory Tests Test 12/19/16 04:20 Anion Gap 14 Basophils # 0.0 Basophils % 0.4 Blood Urea Nitrogen 13 Calcium Level 9.2 Carbon Dioxide Level 28 Chloride Level 100 Creatinine 1.06 Eosinophils # 0.6 H Eosinophils % 6.1 Glucose Level 86 Hematocrit 40.1 L Hemoglobin 13.9 L Lymphocytes # 1.5 Lymphocytes % 16.1 Mean Corpuscular Hemoglobin 31.2 Mean Corpuscular Hemoglobin Concent 34.7 Mean Corpuscular Volume 90.1 Mean Platelet Volume 7.9 Monocytes # 0.5 Monocytes % 5.2 Neutrophils # 6.8 Neutrophils % 72.2 Nucleated Red Blood Cells # 0.0 Nucleated Red Blood Cells % 0.0 Platelet Count 323 Potassium Level 3.6 Red Blood Count 4.45 L Red Cell Distribution Width 12.5 Sodium Level 138 White Blood Count 9.4 Medications Medications Current Medications Sodium Chloride (NS) 1,000 ml @ 75 mls/hr [id number] IV Last administered on 12/17 13:41; Admin Dose 75 MLS/HR; Start 12/14/16 at 07:00 Hydromorphone HCl (Dilaudid) 0.5 mg Q6H PRN IV PAIN LEVEL 6-10 Last administered on 12/17/16 20:57; Admin Dose 0.5 MG; Start 12/14/16 at 16:00 Morphine Sulfate 2 mg 2 mg Q2H PRN IV PAIN LEVEL 6-10 Last administered on 12/16 22:22; Admin Dose 2 MG; Start 12/14/16 at 16:00 Lactated Ringer's (Lr) 1,000 ml @ 100 mls/hr Q10H IV Last administered on 12/19 09:14; Admin Dose 100 MLS/HR; Start 12/14/16 at 15:59 Heparin Sodium (Porcine) (Heparin (5000 Units/0.5 ml)) 5,000 unit Q8 SC Last administered on 12/19/16 16:11; Admin Dose 5,000 UNIT; Start 12/15/16 at 06:00 Salmeterol Xinafoate/ Fluticasone (Advair 500/50 Diskus) 1 inh BID INH Last administered on 12/19/16 09:11; Admin Dose 1 INH; Start 12/15/16 at 09:00 Calcium Carbonate (Tums) 500 mg TID PO Last administered on 12/18/16 09:07; Admin Dose 500 MG; Start 12/17/16 at 12:00 Cyclobenzaprine HCl (Flexeril) 10 mg TID PO Last administered on 12/18/16 09: 07; Admin Dose 10 MG; Start 12/18/16 at 03:00 Acetaminophen (Tylenol Tab) 650 mg Q4H PRN PO PAIN AND OR ELEVATED TEMP Last administered on 12/18/16 10:57; Admin Dose 650 MG; Start 12/18/16 at 11:00 Metoclopramide HCl (Reglan) 5 mg Q6H IV Last administered on 12/19/16 17:51; Admin Dose 5 MG; Start 12/18/16 at 18:00 Ondansetron HCl (Zofran Inj) 4 mg Q6H PRN IV NAUSEA AND/OR VOMITING; Start at 12:00 Hydralazine HCl (Apresoline) 10 mg Q4H PRN IV ELEVATED BLOOD PRESSURE; Start at 12:00 MULU MARCELO Dec 19, 2016 19:18
[2016-12-20] MEDS: LACTATED RINGER'S 1,000 ML IV SCH ×2 (01:59→11:59)
[2016-12-20] MEDS: METOCLOPRAMIDE 10 MG INJ IV SCH ×2 (05:48→12:00)
[2016-12-20] MEDS: HEPARIN 5,000 UNIT/0.5 ML SYG SC SCH ×2 (05:49→13:59)
[2016-12-20 07:59] VITALS: BP 121/71; RESP 16
[2016-12-20] MEDS: SALMETEROL/FLUTICASONE 500/50 INHA INH SCH (08:54)
[2016-12-20] MEDS: CALCIUM CARBONATE 500 MG CHEW TAB PO SCH ×2 (08:54→13:57)
[2016-12-20] MEDS: SOD CHLORIDE 0.9% 1,000 ML IV SCH (08:54)
--- NOTE | 2016-12-20 12:24 | PN ---
Date/Time of Note Date/Time of Note DATE: 12/20/16 TIME: 12:22 Assessment/Plan VTE Prophylaxis VTE Prophylaxis Intervention: heparin, SCD's Lines/Catheters IV [facility]from [facility] [place] [facility] Urinary Cath still in place: No Assessment/Plan Chief Complaint/Hosp Course s/p lap right hemicolectomy Problems: Assessment/Plan doing well d/c home Subjective 24 Hr Interval Summary Free Text/Dictation tolerating diet, moving bowels Exam/Review of Systems Vital Signs Vitals Vital Signs Date Time Temp Pulse Resp B/P Pulse Ox O2 Delivery O2 Flow Rate FiO2 12/20/16 07:59 97.9 78 16 121/71 94 Intake and Output 12/19/16 12/19/16 12/20/16 15:00 23:00 07:00 Intake Total 1480 ml 450 ml Balance 1480 ml 450 ml Exam dry and intact dressings Results Result Diagram: 12/19/16 0420 12/19/16 0420 Medications Medications Current Medications Sodium Chloride (NS) 1,000 ml @ 75 mls/hr [id number] IV Last administered on 12/17 13:41; Admin Dose 75 MLS/HR; Start 12/14/16 at 07:00 Hydromorphone HCl (Dilaudid) 0.5 mg Q6H PRN IV PAIN LEVEL 6-10 Last administered on 12/17/16 20:57; Admin Dose 0.5 MG; Start 12/14/16 at 16:00 Morphine Sulfate 2 mg 2 mg Q2H PRN IV PAIN LEVEL 6-10 Last administered on 12/16 22:22; Admin Dose 2 MG; Start 12/14/16 at 16:00 Lactated Ringer's (Lr) 1,000 ml @ 100 mls/hr Q10H IV Last administered on 12/19 09:14; Admin Dose 100 MLS/HR; Start 12/14/16 at 15:59 Heparin Sodium (Porcine) (Heparin (5000 Units/0.5 ml)) 5,000 unit Q8 SC Last administered on 12/20/16 05:49; Admin Dose 5,000 UNIT; Start 12/15/16 at 06:00 Salmeterol Xinafoate/ Fluticasone (Advair 500/50 Diskus) 1 inh BID INH Last administered on 12/20/16 08:54; Admin Dose 1 INH; Start 12/15/16 at 09:00 Calcium Carbonate (Tums) 500 mg TID PO Last administered on 12/20/16 08:54; Admin Dose 500 MG; Start 12/17/16 at 12:00 Cyclobenzaprine HCl (Flexeril) 10 mg TID PO Last administered on 12/19/16 23: 32; Admin Dose 10 MG; Start 12/18/16 at 03:00 Acetaminophen (Tylenol Tab) 650 mg Q4H PRN PO PAIN AND OR ELEVATED TEMP Last administered on 12/18/16 10:57; Admin Dose 650 MG; Start 12/18/16 at 11:00 Ondansetron HCl (Zofran Inj) 4 mg Q6H PRN IV NAUSEA AND/OR VOMITING; Start at 12:00 Hydralazine HCl (Apresoline) 10 mg Q4H PRN IV ELEVATED BLOOD PRESSURE; Start at 12:00 Chris TORRES Dec 20, 2016 12:24
[2016-12-20] MEDS: CYCLOBENZAPRINE 10 MG TAB PO SCH (13:00)
--- NOTE | 2016-12-20 18:55 | PDOCDIS ---
Discharge Instructions HOME CARE INSTRUCTIONS: Special Diet: CLEAR LIQUID VANNESA FIGUEROA Dec 20, 2016 18:55
[2016-12-20] MEDS ORDERED: CALC200T26 PO (18:59)
[2016-12-20] MEDS ORDERED: ADV50050 INH (18:59)
[2016-12-20] MEDS ORDERED: FAMO-18 PO (18:59)
[2016-12-20] MEDS ORDERED: DOCU-144 PO (18:59)
[2016-12-20] MEDS ORDERED: CYCL-319 PO (18:59)
[2016-12-20] MEDS ORDERED: HYDR-906 PO (18:59)
[2016-12-20] MEDS ORDERED: ALBU18HF INH (18:59)
== END 2016-12-20 19:25 | disposition home or self-care (01) | DRG 330 ==
LOC: REC 11:18 → MS1 17:10
PROVIDERS: ADMIT Internal Medicine; ATTEND Surgery
PROC: 0DTF0ZZ Resection of Right Large Intestine, Open Approach (ICD-10-PCS; principal; 2016-12-14 14:00)
DX: D12.0 Benign neoplasm of cecum (principal); K91.3 Postprocedural intestinal obstruction; I10 Essential (primary) hypertension; R14.0 Abdominal distension (gaseous); R06.6 Hiccough; I25.2 Old myocardial infarction; Z86.73 Personal history of transient ischemic attack (TIA), and cerebral infarction without residual deficits; Z87.19 Personal history of other diseases of the digestive system
CPT/HCPCS: 80048; 80053; 81003; 85025; 87086; 88309; J0131; J0295; J0330; J0690; J1100; J1170; J2250; J2270; J2405; J2710; J2765; J3010; J7030; J7120